=== PATIENT | male | born 1975 | race Two or more races ===

== ENCOUNTER 2021-05-07 16:12 | Emergency (ER) | payer OTHER ==
[~2021-05-07] VITALS: Ht 172.7 cm; Wt 127.2 kg
[~2021-05-07 16:12] MED LIST: DICY20TA30 PO; PROM25TA10 PO
[2021-05-07 16:40] VITALS: BP 168/102
[2021-05-07] MEDS ORDERED: DIPH,PERTUSS(ACELL),TET VAC/PF 0.5 ML SYRINGE. VAX IM ONE (17:15)
[2021-05-07] MEDS ORDERED: IBUPROFEN 200 MG TABLET. PO ONE (17:15)
[2021-05-07] MEDS ORDERED: BACI3.5O8 OD (17:16)
[2021-05-07] MEDS ORDERED: LIDO454G TP (17:16)
--- NOTE | 2021-05-07 17:17 | PHYS DOC ---
Past Medical History Past Medical History: No Pertinent History Past Surgical History: No Surgical History Smoking Status: Current Every Day Smoker Additional Information: 1 CIGARETTE A DAY Alcohol Use: Occasionally Drug Use: Marijuana General Adult EDM: Chief Complaint: BURN/SMOKE INHALATION HPI: HPI: Patient is a 45 year old male who presents with was at work today and he grabbed a hot badillo. He is complaining of pain from a stage I burn that is very superficial and there is no blistering to his palm of his right hand. He states it is a diagonal across the palm of his hand. Patient rates his pain an 8 out of 10. He states he does need a tetanus shot. He denies any other past medical history. Review of Systems: Review of Systems: Constitutional: Denies fever or chills. [] Eyes: Denies change in visual acuity. [] HENT: Denies nasal congestion or sore throat. [] Respiratory: Denies cough or shortness of breath. [] Cardiovascular: Denies chest pain or edema. [] GI: Denies abdominal pain, nausea, vomiting, bloody stools or diarrhea. [] : Denies dysuria. [] Musculoskeletal: Denies back pain or joint pain. + Right hand pain [] Integument: Denies rash. + Burn to right palm of hand [] Neurologic: Denies headache, focal weakness or sensory changes. [] Endocrine: Denies polyuria or polydipsia. [] Lymphatic: Denies swollen glands. [] Psychiatric: Denies depression or anxiety. [] Heart Score: C/O Chest Pain: No Risk Factors: Risk Factors: DM, Current or recent (<one month) smoker, HTN, HLP, family history of CAD, obesity. Risk Scores: Score 0 - 3: 2.5% MACE over next 6 weeks - Discharge Home Score 4 - 6: 20.3% MACE over next 6 weeks - Admit for Clinical Observation Score 7 - 10: 72.7% MACE over next 6 weeks - Early Invasive Strategies Current Medications: Current Medications Medications (Trade) Dose Ordered Sig/Jhonathan Start Time Stop Time Status Last Admin Dose Admin Diphtheria/ Tetanus/Acell Pertussis (ADACEL TDap SYRINGE) 0.5 ml ONCE ONCE 05/07/21 17:15 05/07/21 17:16 UNV Allergies: Allergies: Allergies Coded Allergies Type Severity Reaction Last Updated Verified No Known Drug Allergies 05/25/16 No Physical Exam: PE: Constitutional: Well developed, well nourished, no acute distress, non-toxic appearance. [] HENT: Normocephalic, atraumatic, bilateral external ears normal, oropharynx moist, no oral exudates, nose normal. [] Eyes: PERRLA, EOMI, conjunctiva normal, no discharge. [] Neck: Normal range of motion, no tenderness, supple, no stridor. [] Cardiovascular:Heart rate regular rhythm, no murmur [] Lungs & Thorax: Bilateral breath sounds clear to auscultation [] Abdomen: Bowel sounds normal, soft, no tenderness, no masses, no pulsatile masses. [] Skin: Warm, dry, no erythema, no rash. [place] tinge stage I burn to right palm of hand [] Back: No tenderness, no CVA tenderness. [] Extremities: No tenderness, no cyanosis, no clubbing, ROM intact, no edema. [] Neurologic: Alert and oriented X 3, normal motor function, normal sensory function, no focal deficits noted. [] Psychologic: Affect normal, judgement normal, mood normal. [] Current Patient Data: Vital Signs: Vital Signs Date Time Temp Pulse Resp B/P (MAP) Pulse Ox O2 Delivery O2 Flow Rate FiO2 05/07/21 16:40 98.8 89 18 168/102 (124) 100 Room Air 98.8 EKG: EKG: [] Radiology/Procedures: Radiology/Procedures: [] Course & Med Decision Making: Course & Med Decision Making Pertinent Labs and Imaging studies reviewed. (See chart for details) See HPI. Alert and oriented x4. Ambulatory with a steady gait. Speaks in full clear sentences. Patient can make a full fist. There is no swelling to the hand. There is only a pink tinge to the palm of the hand. There is no blistering or skin breakage. Patient got tetanus shot in the ED. Full range of motion of all joints. No signs of infection. Patient is given ibuprofen. Is to follow-up with primary care or his work comp physician. Radial pulse strong and present. Cap refill less than 2 seconds. [] Dragon Disclaimer: Dragon Disclaimer: This electronic medical record was generated, in whole or in part, using a voice recognition dictation system. Departure Departure Impression: Primary Impression: Burn Disposition: 01 HOME / SELF CARE / HOMELESS Condition: STABLE Referrals: NO PCP (PCP) Patient Instructions: Burn Care, Diphtheria Toxoid; Tetanus Toxoid Adsorbed, DT, Td Additional Instructions: Follow-up with a primary care provider if needed. Use medication as prescribed. Scripts Lidocaine/Menthol/Aloe Vera (ALOE VERA PAIN RELIEVING GEL) 454 Gm Gel..gram. 454 GM TP QID PRN for PAIN, #1 EACH Prov: OLLIE HARO APRN 05/07/21 Bacitracin (BACITRACIN) 3.5 Gm Oint...g. 1 JOSELO OD TID, #3.5 GM Prov: OLLIE HARO APRN 05/07/21 OLLIE HARO APRN May 07, 2021 17:17
== END 2021-05-07 17:41 | disposition home or self-care (01) ==
LOC: ER 16:12
DX: T23.101A Burn of first degree of right hand, unspecified site, initial encounter (principal); F17.210 Nicotine dependence, cigarettes, uncomplicated; X16.XXXA Contact with hot heating appliances, radiators and pipes, initial encounter; Y93.89 Activity, other specified; Y92.89 Other specified places as the place of occurrence of the external cause; Y99.8 Other external cause status
CPT/HCPCS: 90471; 90715; 99283-25